=== PATIENT | female | born 1990 | race African-American/Black ===

== ENCOUNTER 2021-06-08 21:34 | Emergency (ER) | payer OTHER ==
[~2021-06-08] VITALS: Ht 165.1 cm; Wt 86.0 kg
[2021-06-08 21:54] VITALS: BP 123/71
[2021-06-08] MEDS ORDERED: HYDROcodone/APAP 5/325MG 1 TAB TABLET PO ONE (22:30)
[2021-06-08] MEDS ORDERED: LIDOCAINE/EPI/TETRACAINE TOPICAL GEL 3 ML. TP ONE (22:30)
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
[2021-06-08] MEDS ORDERED: BACITRACIN TOPICAL OINT PACKET. TP ONE (23:45)
== END 2021-06-08 23:47 | disposition home or self-care (01) ==
LOC: ER 21:34
DX: S01.81XA Laceration without foreign body of other part of head, initial encounter (principal); W22.8XXA Striking against or struck by other objects, initial encounter; Y93.89 Activity, other specified; Y92.89 Other specified places as the place of occurrence of the external cause; Y99.8 Other external cause status
CPT/HCPCS: 12011; 99283; 99284

== ENCOUNTER 2021-06-14 08:43 | Emergency (ER) | payer OTHER ==
[~2021-06-14] VITALS: Ht 165.1 cm; Wt 91.0 kg
[2021-06-14 09:00] VITALS: BP 120/84
--- NOTE | 2021-06-14 09:01 | PHYS DOC ---
Past Medical History Past Surgical History: Other Additional Past Surgical Histo: csection General Adult EDM: Chief Complaint: SUTURE/STAPLE REMOVAL HPI: HPI: 30-year-old female presents for suture removal from a laceration on her left forehead which she sustained last Friday. No other complaints. Denies fever Review of Systems: Review of Systems: Constitutional: Denies fever or chills. Skin: Denies redness skin change. All other systems reviewed as negative except for what was mentioned in the HPI. Heart Score: C/O Chest Pain: No Allergies: Allergies: Allergies Coded Allergies Type Severity Reaction Last Updated Verified No Known Drug Allergies 06/08/21 No Physical Exam: PE: General: No acute distress. Integumentary: Well-healed sutures in the left forehead, no signs of infection or dehiscence Neurologic: Alert, Oriented. Moves all extremities independently. Psychiatric: Cooperative Course & Med Decision Making: Course & Med Decision Making Sutures removed at the bedside, no signs of infection, patient discharged to follow-up as needed Departure Departure Impression: Primary Impression: Encounter for removal of sutures Disposition: 01 HOME / SELF CARE / HOMELESS Condition: STABLE Referrals: NO PCP (PCP) Patient Instructions: Sutured Wound Care, [id number] Additional Instructions: You were seen in the emergency department and your health condition was deemed not to require admission to the hospital. It is important to realize that we can only evaluate you during the time that you are in her department. Occasionally health conditions can worsen upon leaving the emergency department. If this were to happen, please return to and allow us the opportunity to reevaluate you. It is a pleasure to take care of your health needs. Return to the ER if your symptoms worsen, do not improve, or if you develop additional symptoms that are concerning to you GIAN DESOUZA DO Jun 14, 2021 09:01
== END 2021-06-14 09:10 | disposition home or self-care (01) ==
LOC: ER 08:43
DX: S01.81XD Laceration without foreign body of other part of head, subsequent encounter (principal); X58.XXXD Exposure to other specified factors, subsequent encounter
CPT/HCPCS: 99281